=== PATIENT | male | born 1975 | race Caucasian/White ===

== ENCOUNTER 2022-02-06 07:46 | Outpatient (RCR) | payer OTHER, SELFPAY ==
--- NOTE | 2022-02-06 07:53 | PTOPEVAL1 ---
Assessment and note entered by Jaime Andrade Evaluation Information Assessment Status Evaluation Diagnosis right achilles tendon repair Onset 11/24/21 Subjective Information Pt. reports that he underwent Achilles tendon repair on 11/24/21. He reports that he injured through repetitive use with sports. He states that he was casted for 5 weeks. He was then transitioned to a boot for 4-5 weeks. He was then in a brace. He is currently using an orthotic without a brace. He reports his biggest complication currently is pain, strength and flexibility. He reports pain is most notable with being on his feet all day. He states that he does notice and occasional limp. He reports that his goal is to return to walking normal. Reported Pain Level Pain Score 0: Self Report Assessment PT Clinical Summary Pt. is a 46 year old male who enters the clinic post right achilles tendon repair. He presents with impaired gait, impaired ROM, impaired strength and pain. Continued treatment is indicated in order to improve these areas to allow the pt. to be able to complete all IADL's with improved comfort and efficiency. Plan of Care Interventions Electrical Stimulation,Gait Training,Hot Pack/Cold Pack,Manual Therapy,Neuro Re-education, Therapeutic Activities,Therapeutic Exercise,Self- Care/Home Management PT Services Indicated Yes Treatment Frequency and 2x/week x 10 visits Duration These treatments will address the objective and functional deficits as defined above. The patient will be advanced safely and appropriately in order for the patient to progress towards his/her prior level of function. Additional exercises will be introduced and as well as a comprehensive home exercise program upon discharge, if needed, ?to ensure carryover of functional gains achieved in the clinic. This treatment plan has been reviewed and agreement upon by the patient.
== END 2022-02-08 15:46 | disposition home or self-care (01) ==
LOC: CHSPT 07:46
DX: R26.89 Other abnormalities of gait and mobility (principal); M79.661 Pain in right lower leg; Z98.890 Other specified postprocedural states
CPT/HCPCS: 97014; 97110; 97140; 97161; G0283

== ENCOUNTER 2024-02-05 00:21 | Day surgery (SDC) | payer OTHER, SELFPAY ==
[2024-01-25 15:46] VITALS: BMI 39.8
[2024-02-05 09:25] VITALS: BP 128/83; PULSE 82; RESP 18; TEMP 36.1; O2SAT 99
--- NOTE | 2024-02-05 09:37 | PM.IMHP ---
H&P: HPI History of Present Illness Date/Time: 02/05/24 09:37 Chief Complaint: screening colonoscopy Narrative: This is the patient's first colonoscopy. There are no GI symptoms and there is no family history of colorectal cancer. Review of Systems Review of Systems: All systems reviewed & are unremarkable except as noted in HPI and below PMFSH Past Medical History Medical History Essential (primary) hypertension Hyperlipidemia, unspecified Hyperprolactinemia Morbid obesity Testicular hypofunction Type 2 diabetes mellitus Family History Family History Other Family history of chronic obstructive pulmonary disease Hypertension Social History Social History Smoking status: Never smoker Alcohol intake: current Drinks per week: 1 Substance use: never Substance use type: does not use Do You Feel Safe in your Home?: Yes Lack of Transportation: No Lack of Food: Never True Current Housing: I Have Housing Concerned About Future Housing: No Difficulty Paying Gas/Electric Bills: YES Difficulty Paying for Meds: No Currently Unemployed: No Education: Master's Degree or Higher Difficulty w/ Childcare or Family Care: No Living arrangements: with family Occupation/Education: occupation Gender identity (if verbalized by the patient): Male Sexual Orientation (if Verbalized by the Patient): Straight or Heterosexual Spiritual care concerns: No Meds Home Medications and Allergies Home Medications ?Medication ?Instructions ?Recorded ?Confirmed ?Type omeprazole 20 mg capsule,delayed 20 mg PO DAILY 08/28/22 02/05/24 History release cabergoline 0.5 mg tablet See Rx Instructions .Route 04/13/23 02/05/24 Rx .COMPLEX #13 tabs psyllium husk 3.4 gram/5.4 gram 2 tsp PO DAILY 04/13/23 02/05/24 History oral powder (Metamucil) losartan 50 mg tablet 50 mg PO DAILY #90 tabs 08/28/23 02/05/24 Rx semaglutide 1 mg/dose (4 mg/3 mL) 1 mg (0.75 mL) subcut WEEKLY #9 mL 11/07/23 01/25/24 Rx subcutaneous pen injector (Ozempic) valacyclovir 1 gram tablet 1,000 mg PO TID PRN Cold Sores 01/25/24 01/25/24 History azithromycin 250 mg tablet See Rx Instructions PO .COMPLEX #6 01/30/24 Rx tabs Allergies Allergy/AdvReac Type Severity Reaction Status Date / Time No Known Allergies Allergy Verified 02/05/24 09:21 Vital Signs Vital Signs - 24 hr 02/05/24 09:25 Temperature 97 F L Pulse Rate 82 Respiratory Rate 18 Blood Pressure 128/83 Pulse Oximetry 99 Oxygen Delivery Room Air Exam Const: General: cooperative and healthy appearing Resp: Effort & Inspection: normal respiratory effort and able to speak in complete sentences Auscultation: clear to auscultation bilaterally Cardio: Rate: regular rate Rhythm: regular rhythm GI: Inspection: normal to inspection GI Palp: No No hepatosplenomegaly present Auscultation: normal bowel sounds Rectal Exam: deferred Skin: General skin exam: normal color Psych: Appearance: grossly normal Mental Status: mental status grossly normal Assessment and Plan Assessment and plan (1) Screening for malignant neoplasm of colon: Code(s): Z12.11 - Encounter for screening for malignant neoplasm of colon Status: Acute Assessment and Plan: The patient is deemed a good candidate for the procedure. Consent signed. Will proceed.
[2024-02-05] MEDS: LACTATED RINGERS 1,000 ML 150 ML IV CONT (09:38)
[2024-02-05 09:39] LABS: Glucose Point of Care 149 mg/dl (65-105)
--- NOTE | 2024-02-05 09:41 | WPDANESEPPF ---
Anes - Initial Pre Proc Eval Procedure: Operation Date: 02/05/24 10:30 Proposed Procedures p Screening Colonoscopy - Santos Rodriguez MD Date/Time: 02/05/24 09:41 Surgeon: Santos Rodriguez MD Pre Op Diagnosis: Screening for malignant neoplasm of colon Patient Data Age: 48 Gender: M Height: 1.88 m Weight: 142.9 kg Last Vital Signs Temp 36.1 C L 02/05/24 09:25 Pulse 82 02/05/24 09:25 Resp 18 02/05/24 09:25 BP 128/83 02/05/24 09:25 Pulse Ox 99 02/05/24 09:25 O2 Del Method Room Air 02/05/24 09:25 Allergies Allergy/AdvReac Type Severity Reaction Status Date / Time No Known Allergies Allergy Verified 02/05/24 09:21 Home Medications ?Medication ?Instructions ?Recorded ?Confirmed ?Type omeprazole 20 mg capsule,delayed 20 mg PO DAILY 08/28/22 02/05/24 History release cabergoline 0.5 mg tablet See Rx Instructions .Route 04/13/23 02/05/24 Rx .COMPLEX #13 tabs psyllium husk 3.4 gram/5.4 gram 2 tsp PO DAILY 04/13/23 02/05/24 History oral powder (Metamucil) losartan 50 mg tablet 50 mg PO DAILY #90 tabs 08/28/23 02/05/24 Rx semaglutide 1 mg/dose (4 mg/3 mL) 1 mg (0.75 mL) subcut WEEKLY #9 mL 11/07/23 02/05/24 Rx subcutaneous pen injector (Ozempic) valacyclovir 1 gram tablet 1,000 mg PO TID PRN Cold Sores 01/25/24 01/25/24 History Laboratory Tests 02/05/24 09:36 POC Capillary Glucose 149 H mg/dl (65-105) Patient hx anesthesia problems: none Family hx anesthesia problems: none Results Review: All pre-operative results and documents have been reviewed as part of the pre-operative evaluation. [facility] Past Medical History Medical History Morbid obesity Type 2 diabetes mellitus Testicular hypofunction Hyperprolactinemia Hyperlipidemia, unspecified Essential (primary) hypertension Family History Family History Other Family history of chronic obstructive pulmonary disease Hypertension Social History Social History Smoking status: Never smoker Alcohol intake: current Drinks per week: 1 Substance use: never Substance use type: does not use Do You Feel Safe in your Home?: Yes Lack of Transportation: No Lack of Food: Never True Current Housing: I Have Housing Concerned About Future Housing: No Difficulty Paying Gas/Electric Bills: YES Difficulty Paying for Meds: No Currently Unemployed: No Education: Master's Degree or Higher Difficulty w/ Childcare or Family Care: No Living arrangements: with family Occupation/Education: occupation Gender identity (if verbalized by the patient): Male Sexual Orientation (if Verbalized by the Patient): Straight or Heterosexual Spiritual care concerns: No Anes - Eval Final PreProcedure Day of Procedure 02/05/24 09:41 Patient weight: morbidly obese Heart: regular rate and rhythm Lungs: clear to auscultation Airway: Mallampati scale class II Neurological: alert and oriented Last oral intake: >/= 8 hours ASA classification: III Emergent: no Anesthetic plan: proceed Anesthesia type and monitoring: general GIVS and standard monitoring Results Review: All pre-operative results and documents have been reviewed as part of the pre-operative evaluation. Informed Consent: The patient's anesthetic plan and its attendant risks and benefits were discussed with the patient/family/POA. Questions were solicited and answers provided to the satisfaction of the patient/family/POA.
[2024-02-05 11:22] VITALS: BP 128/72; PULSE 75; RESP 16; O2SAT 98
[2024-02-05 11:32] VITALS: BP 125/88; PULSE 88; RESP 18; O2SAT 98
[2024-02-05 11:42] VITALS: BP 118/83; PULSE 83; RESP 20; O2SAT 98
== END 2024-02-05 11:52 | disposition home or self-care (01) ==
PROVIDERS: PCP Family Medicine; Visit Provider Internal Medicine Gastroenterology
PROC: 0DJD8ZZ Inspection of Lower Intestinal Tract, Via Natural or Artificial Opening Endoscopic (ICD-10-PCS; CPT 45378; principal; 2024-02-05 10:30)
DX: Z12.11 Encounter for screening for malignant neoplasm of colon (principal); K64.8 Other hemorrhoids; K57.30 Diverticulosis of large intestine without perforation or abscess without bleeding; I10 Essential (primary) hypertension; E22.1 Hyperprolactinemia; E11.9 Type 2 diabetes mellitus without complications; E29.1 Testicular hypofunction; E66.01 Morbid (severe) obesity due to excess calories; Z68.41 Body mass index [BMI] 40.0-44.9, adult; Z79.85 Long-term (current) use of injectable non-insulin antidiabetic drugs
CPT/HCPCS: 45378; 82948; J2003; J2704; J7120

== ENCOUNTER 2024-04-23 13:46 | Emergency (ER) | payer OTHER, SELFPAY ==
[2024-04-23 13:58] VITALS: BP 113/76; PULSE 86; RESP 18; TEMP 36.1; O2SAT 98
[2024-04-23 14:16] LABS: EDSTREPNEGPOS1 Negative (Negative)
[2024-04-23 14:24] LABS: EDCOVIDSCREEN Negative (Negative); EDINFLUASCREEN Negative (Negative); EDINFLUBSCREEN Negative (Negative)
--- NOTE | 2024-04-23 14:27 | ED.GENADULT ---
HPI - General Adult General Chief complaint: Upper Respiratory Infection Stated complaint: chest congestion/sore throat/cough Source: patient Mode of arrival: ambulatory Limitations: no limitations History of Present Illness HPI narrative: Patient presents for evaluation of sick symptoms for last 4 days. Symptoms include sinus congestion, mucopurulent discharge from the nares, chest congestion, productive cough of brown sputum, and scratchy throat. He denies any fever, chills, nausea, vomiting, diarrhea. His and child are both sick. He has tried mucinex DM for his symptoms which provides him with transient relief. He does not smoke. Related Data Home Medications ?Medication ?Instructions ?Recorded ?Confirmed ?Last Taken ?Type omeprazole 20 mg capsule,delayed 20 mg PO DAILY 08/28/22 02/05/24 02/04/24 History release psyllium husk 3.4 gram/5.4 gram 2 tsp PO DAILY 04/13/23 02/05/24 02/04/24 History oral powder (Metamucil) Allergies Allergy/AdvReac Type Severity Reaction Status Date / Time No Known Allergies Allergy Verified 04/23/24 13:58 Review of Systems Review of Systems: CONSTITUTIONAL: Denies fever, chills, or sweats. EYES: Denies visual changes, redness, or discharge. ENT: Reports sinus congestion, thick yellow/green drainage from the nares and scratchy throat CARDIOVASCULAR: Denies chest pain, palpitations, or edema. RESPIRATORY: Reports productive cough of brown sputum. Denies SOB GASTROINTESTINAL: Denies abdominal pain, nausea, vomiting, or diarrhea. GENITOURINARY: Denies dysuria or hematuria. SKIN: Denies rash or itching. MUSCULOSKELETAL: Denies back pain, joint pain, or myalgia. NEUROLOGIC: Denies headache, numbness, dizziness, or weakness. PSYCHIATRIC: Denies anxiety or depression. [facility] Past Medical History Medical History Morbid obesity Type 2 diabetes mellitus Testicular hypofunction Hyperprolactinemia Hyperlipidemia, unspecified Essential (primary) hypertension Surgical History Surgical History H/O Achilles tendon repair Family History Family History Other Family history of chronic obstructive pulmonary disease Hypertension Social History Social History Smoking status: Never smoker Alcohol intake: current Drinks per week: 1 Substance use: never Substance use type: does not use Do You Feel Safe in your Home?: Yes Lack of Transportation: No Lack of Food: Never True Current Housing: I Have Housing Concerned About Future Housing: No Difficulty Paying Gas/Electric Bills: YES Difficulty Paying for Meds: No Currently Unemployed: No Education: Master's Degree or Higher Difficulty w/ Childcare or Family Care: No Living arrangements: with family Occupation/Education: occupation Gender identity (if verbalized by the patient): Male Sexual Orientation (if Verbalized by the Patient): Straight or Heterosexual Spiritual care concerns: No Exam Narrative: GENERAL: Well-appearing, well-nourished, and in no acute distress. HEAD: Normocephalic, atraumatic. EYES: PERRLA and EOMI. ENT: Nares clear, no rhinorrhea or epistaxis. Mucous membranes moist. Oropharynx without tonsillar hypertrophy exudate or other lesions. Bilateral TMs pearly li nonbulging NECK: Supple. No adenopathy or masses. No carotid bruits or JVD CHEST: Clear to auscultation. No respiratory distress. No wheezes rales or rhonchi HEART: Regular rate and rhythm. No murmur heard. Normal peripheral pulses. ABDOMEN: Soft, nontender, nondistended, normal active bowel sounds. EXTREMITIES: Normal range of motion. No edema. SKIN: Warm, dry, no rash. NEURO: No focal deficits. Alert and oriented x3. PSYCH: Normal mood and affect. Course Course Emergency Course: This is a 48-year-old male who presented for evaluation of sick symptoms. Influenza, COVID and strep were all negative. He meets criteria for bacterial sinusitis based upon mucopurulent nature of his discharge. Increase hydration. Will dc with augmentin. Follow up with primary provider. Go to the ER for worsening symptoms. Pt in agreement with plan of care. Level of Care: Express Care Visit Vital Signs Vital signs: Vital Signs Temperature 36.1 C L 04/23/24 13:58 Pulse Rate 86 04/23/24 13:58 Respiratory Rate 18 04/23/24 13:58 Blood Pressure 113/76 04/23/24 13:58 Pulse Oximetry 98 04/23/24 13:58 Oxygen Delivery Room Air 04/23/24 13:58 Temperature 36.1 C L 04/23/24 13:58 Pulse Rate 86 04/23/24 13:58 Respiratory Rate 18 04/23/24 13:58 Blood Pressure 113/76 04/23/24 13:58 Pulse Oximetry 98 04/23/24 13:58 Oxygen Delivery Room Air 04/23/24 13:58 Medical Decision Making Vital Signs Vital Signs: Vital Signs Temperature 36.1 C L 04/23/24 13:58 Pulse Rate 86 04/23/24 13:58 Respiratory Rate 18 04/23/24 13:58 Blood Pressure 113/76 04/23/24 13:58 Pulse Oximetry 98 04/23/24 13:58 Oxygen Delivery Room Air 04/23/24 13:58 Temperature 36.1 C L 04/23/24 13:58 Pulse Rate 86 04/23/24 13:58 Respiratory Rate 18 04/23/24 13:58 Blood Pressure 113/76 04/23/24 13:58 Pulse Oximetry 98 04/23/24 13:58 Oxygen Delivery Room Air 04/23/24 13:58 Lab Data Labs: Lab Results 04/23/24 04/23/24 Range/Units 14:14 14:22 POC Influenza A Ag Negative (Negative) POC Influenza B Ag Negative (Negative) POC SARS CoV-2 Ag Negative (Negative) POC Grp A Strep Screen Negative (Negative) Discharge Plan Discharge Clinical Impression: Acute bacterial sinusitis Patient Disposition: Home, Self-Care Condition: Stable Instructions: Antibiotic Form, Sinusitis (ED) Patient Language: Hebrew Prescriptions: New amoxicillin-pot clavulanate 875-125 mg tablet 1 tablet PO Q12H Qty: 20 0RF No Action omeprazole 20 mg capsule,delayed release(DR/EC) 20 mg PO DAILY Metamucil 3.4 gram/5.4 gram powder 2 tsp PO DAILY Rx Instructions: mix into at least 4 oz water or juice before administering cabergoline 0.5 mg tablet See Rx Instructions .ROUTE .COMPLEX Qty: 13 3RF Dose Instruction: TAKE ONE-HALF (1/2) TABLET TWICE A WEEK Rx Instructions: TAKE ONE-HALF (1/2) TABLET TWICE A WEEK losartan 50 mg tablet 50 mg PO DAILY Qty: 90 1RF Ozempic 1 mg/dose (4 mg/3 mL) pen injector 1 mg subcut WEEKLY Qty: 9 0RF Follow-up/Referrals: Duane Santana MD [Primary Care Provider] - Time of Disposition: 14:24
--- OUTSIDE RECORDS SUMMARY | 2024-04-23 15:19 | XMS_ITS | Clinical Summary ---
Author Organization [facility] Address [address] [place] [id number] Care Team Providers Care Weight Clerk Name Role Phone Unavailable Primary Care Provider Unavailabl e Social History Tobacco Use Types Packs/Day Years Used Date Smoking Tobacco: Never Assessed Sex and Gender Information Value Date Recorded Sex Assigned at Not on file Legal Sex Male 4:45 PM CDT Gender Identity Not on file Sexual Orientation Not on file Plan of Treatment Health Maintenance Due Date Last Done Comments Colorectal Cancer Screening Colonoscopy (10 Years) 1974 Annual Physical 1977 Hepatitis C 1992 DTaP, Tdap and Td Vaccines ( 1 - Tdap) 1993 Hepatitis B Vaccines (1 of 3 - 19+ 3-dose series) 1993 COVID-19 Vaccine (2023-2 5 season) 2023 Influenza Adult (#1) 2023 Meningococcal B Vaccine Aged Out No l onger eligible based on patient's age to complete this topic Meningococcal Vaccine Aged Out No rudy jason eligible based on patient's age to complete this topic Pneumococcal Vaccine: Pediat rics (0 to 5 Years) and At-Risk Patients (6 to 64 Years) Aged Out No longer eligible b ased on patient's age to complete this topic RSV Immunizations Under 20 Months Aged Out No longer eligible based on patient's age to complete this topic
--- OUTSIDE RECORDS SUMMARY | 2024-04-23 15:19 | XMS_ITS | Referral Summary ---
Author Organization [address] lt Address [address] [place] [address] Care Team Providers Care Front Office Director Name Role Phone Duane Santana MD Primary Care Provider [phone] Allergies No known active allergies Medications omeprazole (PriLOSEC) 40 mg capsule Take one by mouth one time per day 0 0 0 Active ramipril (ALTACE) 5 mg capsule Take one by mouth one time per day for blood pressure 30 3 0 Active Additional Information Patient not taking.Reported on 03/31/2022 losartan (COZAAR) 50 mg tablet Take 50 mg by mouth daily Active Active Problems Problem Noted Date Diagnosed Date Arthralgia of shoulder 09/30/2013 Arthralgia of elbow 09/30/2013 Family history of cerebrovascular accident (CVA) 07/05/2013 Overview (05/25/2016): FAMILY HX-STROKE 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 HYPERLIPIDEMIA Morbid obesity 07/05/2013 Overview (05/25/2016): MORBID OBESITY Family history of ischemic heart disease 014 Overview (05/26/2016): FAM HX-ISCHEM HEART DIS Achilles tendinitis 08/16/2011 Microprolactinoma 05/02/2011 Hypertension 01/27/2011 Social History Tobacco Use Types Packs/Day Years Used Date Smoking Tobacco: Never Smokeless Tobacco: Never Tobacco Cessation:Counseling Given: Not Answered Alcohol Use Standard Drinks/Week Comments Yes 0 (1 standard drink = 0.6 oz pur e alcohol) Sex and Gender Information Value Date Recorded Sex Assigned at Not on file Legal Sex Male 7:34 PM YARN WASHER Gender Identity Male 04/01/2022 8:19 AM YARN WASHER Sexual Orientation Straight 04/01/2022 8: 19 AM YARN WASHER Last Filed Vital Signs Vital Sign Reading Time Taken Comments Blood Pressure 108/74 04/23/2022 9:51 AM YARN WASHER Pulse 92 04/23/2022 9:51 AM YARN WASHER Temperature 36.3 C (97.3 F) 04/23/2022 9:51 AM YARN WASHER Respiratory Rate 16 04/23/2022 9:51 AM YARN WASHER Oxygen Saturation 95% 04/23/2022 9:51 AM YARN WASHER Inhaled Oxygen Concentration - - Weight 144.7 kg (319 lb) 04/23/2022 9:51 AM YARN WASHER Height 188 cm (6' 2 ) 04/23/2022 9:51 AM YARN WASHER Body Mass Index 40.96 04/23/2022 9:51 AM YARN WASHER Plan of Treatment Not on file Insurance Care Teams Front Office Director Relationship Specialty Start Date End Date Duane Santana MD [address] [place] [id number] PCP - General 07/13/09
--- OUTSIDE RECORDS SUMMARY | 2024-04-23 15:19 | XMS_ITS | Clinical Summary ---
Author Organization [address] Address [address] [facility] [address] Care Team Providers Care Customer Service Advisor Name Role Phone Duane Santana MD Primary Care Provider [phone] Allergies No known active allergies Medications omeprazole [...] Achilles tendinitis 08/16/2011 Microprolactinoma 05/02/2011 Hypertension 01/27/2011 Surgical History Surgery Date Site/Laterality Comments ACHILLES TENDON SURGERY Bilateral 2018 and 2021 SEPTOPLASTY 2012 Social History Tobacco Use Types Packs/Day Years Used Date Smoking Tobacco: Never Smokeless Tobacco: Never Tobacco Cessation:Counseling Given: Not Answered Alcohol Use Standard Drinks/Week Comments Yes 0 (1 standard drink = 0.6 oz pur e alcohol) Sex and Gender Information Value Date Recorded Sex Assigned at Not on file Legal 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 TRUCK DRIVER Gender Identity Male 04/01/2022 8:19 AM SOLID WASTE TRUCK DRIVER Sexual Orientation Straight 04/01/2022 8: 19 AM SOLID WASTE TRUCK DRIVER Obstetrics History Last Filed Vital Signs Vital Sign Reading Time Taken Comments Blood Pressure 108/74 04/23/2022 9:51 AM SOLID WASTE TRUCK DRIVER Pulse 92 04/23/2022 9:51 AM SOLID WASTE TRUCK DRIVER Temperature 36.3 C (97.3 F) 04/23/2022 9:51 AM SOLID WASTE TRUCK DRIVER Respiratory Rate 16 04/23/2022 9:51 AM SOLID WASTE TRUCK DRIVER Oxygen Saturation 95% 04/23/2022 9:51 AM SOLID WASTE TRUCK DRIVER Inhaled Oxygen Concentration - - Weight 144.7 kg (319 lb) 04/23/2022 9:51 AM SOLID WASTE TRUCK DRIVER Height 188 cm (6' 2 ) 04/23/2022 9:51 AM SOLID WASTE TRUCK DRIVER Body Mass Index 40.96 04/23/2022 9:51 AM SOLID WASTE TRUCK DRIVER Plan of Treatment Health Maintenance Due Date Last Done Comments Colon Cancer Screening-Colonoscopy 1974 Depression Screening 1974 Hepatitis C Screening 1974 Hepatitis B Screening 1992 Regular Well Visit/Exam 18-64 1992 Influenza Vaccine (#1) 2023 DTaP/Tdap/Td Vaccine (2 - Td or Tdap) 05/06/2031 05/05/2021 Pneumococcal vaccine <65 Aged Out No longer eligible based on patient's age to complete this topic Insurance Care Teams Customer Service Advisor Relationship Specialty Start Date End Date Duane Santana MD [address] [place] [id number] PCP - General 07/13/09
== END 2024-04-23 14:27 | disposition home or self-care (01) ==
PROVIDERS: Emergency Provider Nurse Practitioner; PCP Family Medicine
DX: J01.90 Acute sinusitis, unspecified (principal); Z20.822 Contact with and (suspected) exposure to COVID-19; E11.9 Type 2 diabetes mellitus without complications; Z79.85 Long-term (current) use of injectable non-insulin antidiabetic drugs; I10 Essential (primary) hypertension; E78.5 Hyperlipidemia, unspecified; E22.1 Hyperprolactinemia; E66.01 Morbid (severe) obesity due to excess calories; Z68.39 Body mass index [BMI] 39.0-39.9, adult
CPT/HCPCS: 87081; 87426; 87804; 87880; 99213; G0463

== ENCOUNTER 2025-01-26 00:41 | Day surgery (SDC) | payer OTHER, SELFPAY ==
[2025-01-02 09:53] VITALS: BMI 39.2
--- OUTSIDE RECORDS SUMMARY | 2025-01-26 00:43 | XMS_ITS | Clinical Summary ---
Author Organization [facility] Address [address] [place] [address] Care Team Providers Care Radio Time Buyer Name Role Phone Unavailable Primary Care Provider [...] of 3 - 19+ 3-dose series) 1993 Pneumococcal Vaccine: 50+ Ye ars (1 of 1 - PCV) 2024 Zoster Vaccines (1 of 2) 2024 COVID-19 Vaccine ( - 2024-2 6 season) 2024 Influenza Adult (#1) 2024 Hepatitis A Vaccines Aged Out No long er eligible based on patient's age to complete this topic Meningococcal B Vaccine Aged Out No l onger eligible based on patient's age to complete this topic Meningococcal Vaccine Aged Out No rudy jason eligible based on patient's age to complete this topic RSV Immunizations Under 20 Months Aged Out No longer eligible based on patient's age to complete this topic
--- OUTSIDE RECORDS SUMMARY | 2025-01-26 00:43 | XMS_ITS | Clinical Summary ---
Author Organization [address] lt Address [address] [place] [address] Care Team Providers Care Sheep Killer Name Role Phone Duane Santana MD Primary Care Provider [phone] Allergies No known active allergies Medications omeprazole (PriLOSEC) 40 mg capsule Take one by mouth one time per day 0 0 0 Active ramipril (ALTACE) 5 mg capsule Take one by mouth one time per day for blood pressure 30 3 0 Active Additional Information Patient not taking.Reported on 05/10/2024 losartan (COZAAR) 50 mg tablet Take 1 tablet (50 mg total) by mouth daily Active Ozempic 1 mg/dose (4 mg/3 mL) pen injector injection 5 Active cabergoline (DOSTINEX) 0.5 mg tablet 5 Active Active Problems Problem Noted Date Diagnosed [...] on file Legal Sex Male 7:34 PM LANDSCAPE SUPERVISOR Gender Identity Male 04/01/2022 8:19 AM LANDSCAPE SUPERVISOR Sexual Orientation Straight 04/01/2022 8: 19 AM LANDSCAPE SUPERVISOR Last Filed Vital Signs Vital Sign Reading Time Taken Comments Blood Pressure 122/78 05/10/2024 5:37 PM CDT Pulse 92 05/10/2024 5:37 PM CDT Temperature 36.6 C (97.9 F) 05/10/2024 5:37 PM CDT Respiratory Rate 20 05/10/2024 5:37 PM CDT Oxygen Saturation 95% 05/10/2024 5:37 PM CDT Inhaled Oxygen Concentration - - Weight 143.3 kg (316 lb) 05/10/2024 5:37 PM CDT Height 188 cm (6' 2) 05/10/2024 5:37 PM CDT Body Mass Index 40.57 05/10/2024 5:37 PM CDT Plan of Treatment Health Maintenance Due Date Last Done Comments Colon Cancer Screening-Colonoscopy 1974 Depression Screening 1974 Hepatitis C Screening 1974 Prostate Cancer Screening-PSA 1974 Hepatitis B Screening 1992 Regular Well Visit/Exam 18-64 1992 Zoster Vaccine (1 of 2) 2024 Influenza Vaccine (#1) 2024 DTaP/Tdap/Td Vaccine (2 - Td or Tdap) 05/06/2031 05/05/2021 Pneumococcal vaccine <65 Aged Out No longer eligible based on patient's age to complete this topic Insurance [facility] Care Teams Sheep Killer Relationship Specialty Start Date End Date Duane Santana MD [address] [place] [address] [address] EBONIE MEADOWS [id number] PCP - General 07/13/09
--- NOTE | 2025-01-26 08:04 | WPDANESEPPF ---
Anes - Initial Pre Proc Eval Procedure: Operation Date: 01/26/25 09:30 Proposed Procedures p Diagnostic Colonoscopy - Santos Rodriguez MD Date/Time: 01/26/25 08:04 Surgeon: Santos Rodriguez MD Pre Op Diagnosis: Diverticulosis of large intestine without perforat Patient Data Age: 49 Gender: M Height: 1.88 m Weight: 138.5 kg Allergies Allergy/AdvReac Type Severity Reaction Status Date / Time No Known Allergies Allergy Verified 01/02/25 09:51 Home Medications ?Medication ?Instructions ?Recorded ?Confirmed ?Type omeprazole 20 mg capsule,delayed 20 mg PO DAILY 08/28/22 01/02/25 History release psyllium husk 3.4 gram/5.4 gram 2 tsp PO DAILY 04/13/23 01/02/25 History oral powder (Metamucil) losartan 50 mg tablet 50 mg PO DAILY #90 tabs 08/25/24 01/02/25 Rx cabergoline 0.5 mg tablet See Rx Instructions .Route .COMPLEX 01/02/25 01/02/25 History tirzepatide 7.5 mg/0.5 mL 7.5 mg (0.5 mL) subcut WEEKLY #2 mL 01/20/25 Rx subcutaneous pen injector (Mounjaro) Patient hx anesthesia problems: none Family hx anesthesia problems: none Results Review: All pre-operative results and documents have been reviewed as part of the pre-operative evaluation. [facility], LATER [facility] Past Medical History Medical History Morbid obesity Type 2 diabetes mellitus Testicular hypofunction Hyperprolactinemia Hyperlipidemia, unspecified Essential (primary) hypertension Surgical History Surgical History H/O Achilles tendon repair Family History Family History Other Family history of chronic obstructive pulmonary disease Hypertension Social History Social History Smoking status: Never smoker Alcohol intake: current Drinks per week: 1 Substance use: never Substance use type: does not use Lack of Transportation: No Lack of Food: Never True Current Housing: I Have Housing Concerned About Future Housing: No Difficulty Paying Gas/Electric Bills: YES Difficulty Paying for Meds: No Currently Unemployed: No Education: Master's Degree or Higher Difficulty w/ Childcare or Family Care: No Living arrangements: with family Occupation/Education: occupation Gender identity (if verbalized by the patient): Male Sexual Orientation (if Verbalized by the Patient): Straight or Heterosexual Spiritual care concerns: No Anes - Eval Final PreProcedure Day of Procedure 01/26/25 08:04 Patient weight: obese Heart: regular rate and rhythm Lungs: clear to auscultation Airway: Mallampati scale class II Neurological: alert and oriented Last oral intake: >/= 8 hours ASA classification: III Emergent: no Anesthetic plan: proceed Anesthesia type and monitoring: general GIVS and standard monitoring Results Review: All pre-operative results and documents have been reviewed as part of the pre-operative evaluation. Informed Consent: The patient's anesthetic plan and its attendant risks and benefits were discussed with the patient/family/POA. Questions were solicited and answers provided to the satisfaction of the patient/family/POA.
[2025-01-26 08:07] VITALS: BP 125/82; PULSE 91; RESP 18; TEMP 37; O2SAT 97
[2025-01-26] MEDS: LACTATED RINGERS 1,000 ML 150 ML IV CONT (08:16)
--- NOTE | 2025-01-26 09:09 | PM.IMHP2 ---
H&P: HPI History of Present Illness Date/Time: 01/26/25 09:09 Chief Complaint: Screening colonoscopy Narrative: This is the patient's first colonoscopy. There are no GI symptoms and there is no family history of colorectal cancer. Review of Systems Review of Systems: All systems reviewed & are unremarkable except as noted in HPI and below PMFSH Past Medical History Medical History Morbid obesity Type 2 diabetes mellitus Testicular hypofunction Hyperprolactinemia Hyperlipidemia, unspecified Essential (primary) hypertension Surgical History Surgical History H/O Achilles tendon repair Family History Family History Other Family history of chronic obstructive pulmonary disease Hypertension Social History Social History Smoking status: Never smoker Alcohol intake: current Drinks per week: 1 Substance use: never Substance use type: does not use Lack of Transportation: No Lack of Food: Never True Current Housing: I Have Housing Concerned About Future Housing: No Difficulty Paying Gas/Electric Bills: YES Difficulty Paying for Meds: No Currently Unemployed: No Education: Master's Degree or Higher Difficulty w/ Childcare or Family Care: No Living arrangements: with family Occupation/Education: occupation Gender identity (if verbalized by the patient): Male Sexual Orientation (if Verbalized by the Patient): Straight or Heterosexual Spiritual care concerns: No Meds Home Medications and Allergies Home Medications ?Medication ?Instructions ?Recorded ?Confirmed ?Type omeprazole 20 mg capsule,delayed 20 mg PO DAILY 08/28/22 01/26/25 History release psyllium husk 3.4 gram/5.4 gram 2 tsp PO DAILY 04/13/23 01/26/25 History oral powder (Metamucil) losartan 50 mg tablet 50 mg PO DAILY #90 tabs 08/25/24 01/26/25 Rx cabergoline 0.5 mg tablet See Rx Instructions .Route .COMPLEX 01/02/25 01/02/25 History tirzepatide 7.5 mg/0.5 mL 7.5 mg (0.5 mL) subcut WEEKLY #2 mL 01/20/25 01/26/25 Rx subcutaneous pen injector (Mounjaro) Allergies Allergy/AdvReac Type Severity Reaction Status Date / Time No Known Allergies Allergy Verified 01/02/25 09:51 Vital Signs Vital Signs - 24 hr 01/26/25 08:07 Temperature 98.6 F Pulse Rate 91 Respiratory Rate 18 Blood Pressure 125/82 Pulse Oximetry 97 Oxygen Delivery Room Air Exam Const: General: cooperative and healthy appearing Resp: Effort & Inspection: normal respiratory effort and able to speak in complete sentences Auscultation: clear to auscultation bilaterally Cardio: Rate: regular rate Rhythm: regular rhythm GI: Inspection: normal to inspection GI Palp: No No hepatosplenomegaly present Auscultation: normal bowel sounds Rectal Exam: deferred Skin: General skin exam: normal color Psych: Appearance: grossly normal Mental Status: mental status grossly normal Assessment and Plan Assessment and plan (1) Screening for malignant neoplasm of colon: Code(s): Z12.11 - Encounter for screening for malignant neoplasm of colon Status: Acute Assessment and Plan: The patient is deemed a good candidate for the procedure. Consent signed. Will proceed. Prior Studies I have reviewed the following patient records and this information was taken into consideration when formulating the assessment and plan.: previous labs, previous ER visits, previous hospitalizations and previous clinic visits
[2025-01-26 09:29] VITALS: BP 106/67; PULSE 83; RESP 19; O2SAT 93
[2025-01-26 09:39] VITALS: BP 114/80; PULSE 81; RESP 18; O2SAT 98
[2025-01-26 09:49] VITALS: BP 118/84; PULSE 82; RESP 21; O2SAT 97
== END 2025-01-26 09:55 | disposition home or self-care (01) ==
PROVIDERS: PCP Family Medicine; Referring Provider Internal Medicine Gastroenterology; Visit Provider Internal Medicine Gastroenterology
PROC: 0DJD8ZZ Inspection of Lower Intestinal Tract, Via Natural or Artificial Opening Endoscopic (ICD-10-PCS; CPT 45378; principal; 2025-01-26 09:30)
DX: Z12.11 Encounter for screening for malignant neoplasm of colon (principal); K64.8 Other hemorrhoids; K57.30 Diverticulosis of large intestine without perforation or abscess without bleeding; I10 Essential (primary) hypertension; E11.9 Type 2 diabetes mellitus without complications; E29.1 Testicular hypofunction; E22.1 Hyperprolactinemia; E66.9 Obesity, unspecified; Z68.38 Body mass index [BMI] 38.0-38.9, adult; Z79.85 Long-term (current) use of injectable non-insulin antidiabetic drugs; Z98.890 Other specified postprocedural states
CPT/HCPCS: 45378; 82948; J2003; J2704; J7120